=== PATIENT | male | born 1945 | race Caucasian/White ===

== ENCOUNTER 2019-03-28 20:25 | Emergency (ER) | payer MEDICARE, BC ==
[~2019-03-28] VITALS: Ht 167.6 cm; Wt 90.7 kg
--- NOTE | 2019-03-28 20:27 | ED.ADGEN ---
Past History Past Medical History: Arthritis, CAD, CHF, COPD, Hypertension, Other Past Surgical History: Other Past Surgical History History of craniotomy left Adult General Chief Complaint Chief Complaint ".. I guess I fell.. all I know I started to go around the corner.. and then the only thing I know I was on the ground... they said I was out for a bit.. I was at the [employer].. only had one beer...".." I fine now.. I want to be discharge.. I refuse admission...." HPI HPI Patient is a 76 year old male who presents with above hx and fall with momentary loss of consciousness at [employer]. Patient has history of periodic syncope with previous negative workups. Patient does have history of CVA and TIAs, history of aortic stenosis, coronary artery disease, COPD, and anemia.. Patient has known hypertension . Patient poorly had no seizure activity. Currently patient wi thout symptoms and demanding discharge. Follows with Beverly Romero as primary .,[facility]. Review of Systems Review of Systems Constitutional: Denies fever or chills [] Eyes: Denies change in visual acuity, redness, or eye pain [] HENT: Denies nasal congestion or sore throat [] Respiratory: Denies cough or shortness of breath [] Cardiovascular: No additional information not addressed in HPI [] GI: Denies abdominal pain, nausea, vomiting, bloody stools or diarrhea [] : Denies dysuria or hematuria [] Musculoskeletal: Denies back pain or joint pain [] Integument: Denies rash or skin lesions [] Neurologic: Denies headache, focal weakness or sensory changes [] Endocrine: Denies polyuria or polydipsia [] All other systems were reviewed and found to be within normal limits, except as documented in this note. Family History Family History Noncontributory Current Medications Current Medications Current Medications Medications (Trade) Dose Ordered Sig/Majo Start Time Stop Time Status Last Admin Dose Admin Lactated Ringer's 1,000 ml @ 100 mls/hr Q10H 03/28/19 20:33 03/28/19 23:19 DC 03/28/19 20:51 100 MLS/HR Allergies Allergies Allergies Coded Allergies Type Severity Reaction Last Updated Verified No Known Drug Allergies 10/16/14 No Physical Exam Physical Exam Constitutional: , no acute distress, non-toxic appearance. [] HENT: Normocephalic, atraumatic, bilateral external ears normal, oropharynx moist, no oral exudates, nose normal. []Old surgery scar left Eyes: PERRLA, EOMI, conjunctiva normal, no discharge. [] Neck: Normal range of motion, no tenderness, supple, no stridor. [] Cardiovascular:Heart rate regular rhythm, no murmur []PMI to the left. Aortic murmur. Lungs & Thorax: Bilateral breath sounds equal apex with scattered wheezes auscultation [] Abdomen: Bowel sounds normal, soft, no tenderness, no masses, no pulsatile masses. Old surgery scar Skin: Warm, dry, no erythema, no rash. [] Back: No tenderness, no CVA tenderness. [] Extremities: No tenderness, no cyanosis, no clubbing, ROM intact, no edema. [] Arthritic changes. Neurologic: Alert and oriented X 3, moves all extremities on request. Distal sensory, function, no gross focal deficits noted. []DTRs +2 patella and brachial. Ambulatory without problems. Slightly wide gait. Psychologic: Affect normal, judgement normal, mood normal. [] Current Patient Data Vital Signs Vital Signs Date Time Temp Pulse Resp B/P (MAP) Pulse Ox O2 Delivery O2 Flow Rate FiO2 03/28/19 21:41 63 19 111/80 (90) 96 Room Air 03/28/19 20:37 97.5 Lab Results Laboratory Tests Test 03/28/19 21:40 White Blood Count 8.1 x10^3/uL (4.0-11.0) Red Blood Count 5.52 x10^6/uL (4.30-5.70) Hemoglobin 17.5 g/dL (13.0-17.5) Hematocrit 51.7 % (39.0-53.0) Mean Corpuscular Volume 94 fL (79-100) Mean Corpuscular Hemoglobin 32 pg (25-35) Mean Corpuscular Hemoglobin Concent 34 g/dL (31-37) Red Cell Distribution Width 14.0 % (11.5-14.5) Platelet Count 144 x10^3/uL (140-400) Neutrophils (%) (Auto) 77 % (31-73) H Lymphocytes (%) (Auto) 15 % (24-48) L Monocytes (%) (Auto) 6 % (0-9) Eosinophils (%) (Auto) 2 % (0-3) Basophils (%) (Auto) 1 % (0-3) Neutrophils # (Auto) 6.2 x10^3uL (1.8-7.7) Lymphocytes # (Auto) 1.2 x10^3/uL (1.0-4.8) Monocytes # (Auto) 0.4 x10^3/uL (0.0-1.1) Eosinophils # (Auto) 0.2 x10^3/uL (0.0-0.7) Basophils # (Auto) 0.1 x10^3/uL (0.0-0.2) Prothrombin Time 10.4 SEC (9.4-11.4) Prothrombin Time INR 1.0 (0.9-1.1) PTT 21 SEC (23-33) L D-Dimer (Margot) 0.43 mg/L (0.00-0.50) Sodium Level 140 mmol/L (136-145) Potassium Level 4.1 mmol/L (3.5-5.1) Chloride Level 104 mmol/L (98-107) Carbon Dioxide Level 27 mmol/L (21-32) Anion Gap 9 (6-14) Blood Urea Nitrogen 13 mg/dL (8-26) Creatinine 1.0 mg/dL (0.7-1.3) Estimated GFR (Cockcroft-Gault) 73.0 Glucose Level 110 mg/dL (70-99) H Calcium Level 9.3 mg/dL (8.5-10.1) Magnesium Level 2.2 mg/dL (1.8-2.4) Total Bilirubin 0.6 mg/dL (0.2-1.0) Direct Bilirubin 0.1 mg/dL (0.0-0.2) Aspartate Amino Transferase (AST) 16 U/L (15-37) Alanine Aminotransferase (ALT) 31 U/L (16-63) Alkaline Phosphatase 123 U/L (46-116) H Creatine Kinase 51 U/L (39-308) Creatine Kinase MB (Mass) 0.9 ng/mL (0.0-3.6) Creatine Kinase MB Relative Index 1.8 % (0-4) Troponin I Quantitative < 0.017 ng/mL (0-0.055) EB-Dlw-P-Type Natriuretic Peptide 122 pg/mL (0-124) Total Protein 6.9 g/dL (6.4-8.2) Albumin 3.8 g/dL (3.4-5.0) Lipase 135 U/L (73-393) Ethyl Alcohol Level < 10 mg/dL (0-10) EKG EKG I interpretation EKG shows sinus rhythm at 76 bpm. Does have occasional premature complex. Nonspecific and anterior and inferior changes. No findings acute STEMI with contralateral changes.[] Radiology/Procedures Radiology/Procedures My interpretation of chest x-ray shows no acute cardiopulmonary findings. Borderline cardiomegaly. My interpretation CT of head shows no shift, mass, edema, bleed, or fracture. Does have findings of left frontal parental craniotomy and encephalomalacia. Has generalized diffuse parenchymal atrophy.[] Course & Med Decision Making Course & Med Decision Making Pertinent Labs and Imaging studies reviewed. (See chart for details) Patient refuses admission. Patient refuses to wait for pending labs. is at bed side advised this this is normal behavior for him. States she will and he will return if he has increased symptoms tonight. Patient seems aware of risk of discharge for completion of work up. Patient to use refused admission or further evaluation. Patient encouraged to have prompt follow-up with his primary. . Beverly [] Final Impression Final Impression 1. Fall[] 2. Possible syncope 3. History of left frontoparietal craniotomy and encephalomalacia 4. Anemia 11.5 hemoglobin Dragon Disclaimer Dragon Disclaimer This electronic medical record was generated, in whole or in part, using a voice recognition dictation system. Discharge Summary Visit Information Final Diagnosis Problems Medical Problems: (1) Fall Status: Acute (2) Syncope Status: Acute Brief Hospital Course Allergies Allergies Coded Allergies Type Severity Reaction Last Updated Verified No Known Drug Allergies 10/16/14 No Vital Signs Vital Signs Date Time Temp Pulse Resp B/P (MAP) Pulse Ox O2 Delivery O2 Flow Rate FiO2 03/28/19 21:41 63 19 111/80 (90) 96 Room Air 03/28/19 20:37 97.5 Lab Results Laboratory Tests Test 03/28/19 21:40 White Blood Count 8.1 x10^3/uL (4.0-11.0) Red Blood Count 5.52 x10^6/uL (4.30-5.70) Hemoglobin 17.5 g/dL (13.0-17.5) Hematocrit 51.7 % (39.0-53.0) Mean Corpuscular Volume 94 fL (79-100) Mean Corpuscular Hemoglobin 32 pg (25-35) Mean Corpuscular Hemoglobin Concent 34 g/dL (31-37) Red Cell Distribution Width 14.0 % (11.5-14.5) Platelet Count 144 x10^3/uL (140-400) Neutrophils (%) (Auto) 77 % (31-73) Lymphocytes (%) (Auto) 15 % (24-48) Monocytes (%) (Auto) 6 % (0-9) Eosinophils (%) (Auto) 2 % (0-3) Basophils (%) (Auto) 1 % (0-3) Neutrophils # (Auto) 6.2 x10^3uL (1.8-7.7) Lymphocytes # (Auto) 1.2 x10^3/uL (1.0-4.8) Monocytes # (Auto) 0.4 x10^3/uL (0.0-1.1) Eosinophils # (Auto) 0.2 x10^3/uL (0.0-0.7) Basophils # (Auto) 0.1 x10^3/uL (0.0-0.2) Prothrombin Time 10.4 SEC (9.4-11.4) Prothromb Time International Ratio 1.0 (0.9-1.1) Activated Partial Thromboplast Time 21 SEC (23-33) D-Dimer (Margot) 0.43 mg/L (0.00-0.50) Sodium Level 140 mmol/L (136-145) Potassium Level 4.1 mmol/L (3.5-5.1) Chloride Level 104 mmol/L (98-107) Carbon Dioxide Level 27 mmol/L (21-32) Anion Gap 9 (6-14) Blood Urea Nitrogen 13 mg/dL (8-26) Creatinine 1.0 mg/dL (0.7-1.3) Estimated GFR (Cockcroft-Gault) 73.0 Glucose Level 110 mg/dL (70-99) Calcium Level 9.3 mg/dL (8.5-10.1) Magnesium Level 2.2 mg/dL (1.8-2.4) Total Bilirubin 0.6 mg/dL (0.2-1.0) Direct Bilirubin 0.1 mg/dL (0.0-0.2) Aspartate Amino Transf (AST/SGOT) 16 U/L (15-37) Alanine Aminotransferase (ALT/SGPT) 31 U/L (16-63) Alkaline Phosphatase 123 U/L (46-116) Creatine Kinase 51 U/L (39-308) Creatine Kinase MB (Mass) 0.9 ng/mL (0.0-3.6) Creatine Kinase MB Relative Index 1.8 % (0-4) Troponin I Quantitative < 0.017 ng/mL (0-0.055) KL-Zyj-S-Type Natriuretic Peptide 122 pg/mL (0-124) Total Protein 6.9 g/dL (6.4-8.2) Albumin 3.8 g/dL (3.4-5.0) Lipase 135 U/L (73-393) Ethyl Alcohol Level < 10 mg/dL (0-10) Brief Hospital Course Mr. Sheldon is a 73 old male who presented with fall and possible syncope. Refuses admission. Discharge Information Condition at Discharge: Improved Disposition/Orders: D/C to Home Dischare Medications Current Medications Lactated Ringer's 1,000 ml @ 100 mls/hr Q10H IV Last administered on 03/28/19at 20:51; Admin Dose 100 MLS/HR; Start 03/28/19 at 20:33; Stop 03/28/19 at 23:19; Status DC Dragon Disclaimer This chart was dictated in whole or in part using Voice Recognition software in a busy, high-work load, and often noisy Emergency Department environment. It may contain unintended and wholly unrecognized errors or omissions. KAUSHIK GARCIA MD March 28, 2019 20:27
[2019-03-28] MEDS ORDERED: IV RINGERS SOLUTION,LACTATED 1,000 ML IV SCH (20:33)
[2019-03-28 21:41] VITALS: BP 111/80
[2019-03-28 21:56] LABS: BASO # 0.1 x10^3/uL (0.0-0.2); BASO % 1 % (0-3); EOS # 0.2 x10^3/uL (0.0-0.7); EOS % 2 % (0-3); HEMATOCRIT 51.7 % (39.0-53.0); HEMOGLOBIN 17.5 g/dL (13.0-17.5); LYMPH # 1.2 x10^3/uL (1.0-4.8); LYMPH % 15 % (24-48); MEAN CORPUSCULAR HEMOGLOBIN 32 pg (25-35); MEAN CORPUSCULAR HGB CONC 34 g/dL (31-37); MEAN CORPUSCULAR VOLUME 94 fL (79-100); MONO # 0.4 x10^3/uL (0.0-1.1); MONO % 6 % (0-9); NEUT # 6.2 x10^3uL (1.8-7.7); NEUT % 77 % (31-73); PLATELET COUNT 144 x10^3/uL (140-400); RED BLOOD COUNT 5.52 x10^6/uL (4.30-5.70); WHITE BLOOD COUNT 8.1 x10^3/uL (4.0-11.0)
--- NOTE | 2019-03-28 21:56 | RAD ---
CT scan of the head without contrast 03/28/2019 Clinical History: Fall. Loss of consciousness. Head trauma. Technique: Unenhanced, contiguous, 5 mm axial sections were obtained through the head. One or more of the following individualized dose reduction techniques were utilized for this study: 1. Automated exposure control. 2. Adjustment of the mA and/or kV according to patient size. 3. Use of iterative reconstruction technique. Findings: Comparison study is dated 01/07/2007. The patient is post left frontoparietal craniotomy. There is generalized parenchymal atrophy. Areas of decreased attenuation are seen within the periventricular and subcortical white matter of both cerebral hemispheres consistent with areas of small vessel ischemic disease. An area encephalomalacia seen involving the left frontal lobe. No acute parenchymal abnormality is seen. No extra-axial fluid collection is noted. No skull fracture is seen. Impression: No acute intracranial abnormality is seen. CT scan of the cervical spine without contrast 03/28/2019 Clinical history: Fall with neck injury. Technique: Unenhanced, contiguous, 0.625 mm axial sections were obtained through the cervical spine. Axial, coronal and sagittal reconstructed images were obtained. One or more of the following individualized dose reduction techniques were utilized for this study: 1. Automated exposure control. 2. Adjustment of the mA and/or kV according to patient size. 3. Use of iterative reconstruction technique. Findings: Sagittal and coronal constructed images demonstrate very mild lateral curvature of the cervical spine, convex to the left. There is mild straightening of the normal cervical lordosis. No fracture or subluxation of the cervical vertebrae is seen. Degenerative changes are seen involving the uncovertebral and facet joints throughout the cervical disc spaces. Impression: No fracture or subluxation of the cervical vertebra is identified. Electronically signed by: Chris Jimenez MD (03/28/2019 9:53 PM) [facility]
[2019-03-28 22:21] LABS: ALBUMIN 3.8 g/dL (3.4-5.0); CALCIUM 9.3 mg/dL (8.5-10.1); DIRECT BILIRUBIN 0.1 mg/dL (0.0-0.2); MAGNESIUM 2.2 mg/dL (1.8-2.4); POTASSIUM 4.1 mmol/L (3.5-5.1); TOTAL BILIRUBIN 0.6 mg/dL (0.2-1.0); TOTAL PROTEIN 6.9 g/dL (6.4-8.2)
--- NOTE | 2019-03-29 00:17 | RAD ---
PROCEDURE: CHEST PA LATERAL CLINICAL INDICATION: Fall COMPARISON: None FINDINGS: No pneumothorax identified. Cardiac and mediastinal contours unremarkable. No pulmonary consolidation or acute airspace disease. No acute osseous abnormalities identified. IMPRESSION: No pulmonary consolidation or acute airspace disease. Electronically signed by: Vic Mitchell DO (03/29/2019 12:14 AM) [id number]
--- NOTE | 2019-03-29 15:09 | EKG ---
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
== END 2019-03-28 23:19 | disposition home or self-care (01) ==
LOC: ER 20:25
DX: R55 Syncope and collapse (principal); D64.9 Anemia, unspecified; G93.89 Other specified disorders of brain; M19.90 Unspecified osteoarthritis, unspecified site; I11.9 Hypertensive heart disease without heart failure; I50.9 Heart failure, unspecified; J44.9 Chronic obstructive pulmonary disease, unspecified; Z86.73 Personal history of transient ischemic attack (TIA), and cerebral infarction without residual deficits; W18.39XA Other fall on same level, initial encounter; Y93.89 Activity, other specified; Y92.89 Other specified places as the place of occurrence of the external cause; Y99.8 Other external cause status
CPT/HCPCS: 36415; 70450; 71046; 72125; 80048; 80076; 82553; 83690; 83735; 83880; 84443; 84484; 85025; 85379; 85610; 85730; 93005; 96360; 96361; 99285; G0480; J7120

== ENCOUNTER → 2021-08-12 | Outpatient (CLI) | payer MEDICARE, BC ==
--- NOTE | 2021-08-12 16:40 | RAD ---
EXAM: Lumbar spine, 5 views. HISTORY: Pain. COMPARISON: None. FINDINGS: 5 views lumbar spine are obtained. There is mild S-shaped thoracolumbar scoliosis. There is no significant listhesis. There is degenerative endplate remodeling with disc space narrowing and fa cet arthropathy predominantly at L4-5 and L5-S1. There is a right iliac stent. 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 IMPRESSION: 1. Multilevel degenerative change involving the lumbar spine, primarily at the lower lumbar levels. 2. Mild scoliosis. Electronically signed by: Charlene Benjamin MD (08/12/2021 4:37 PM) [facility]
== END ==
LOC: RAD 14:18
PROVIDERS: ATTEND Physician Assistant Medical
DX: M47.816 Spondylosis without myelopathy or radiculopathy, lumbar region (principal); M41.86 Other forms of scoliosis, lumbar region
CPT/HCPCS: 72110

== ENCOUNTER 2021-10-10 15:27 | Emergency (ER) | payer MEDICARE, BC ==
[~2021-10-10] VITALS: Ht 167.6 cm; Wt 90.9 kg
--- NOTE | 2021-10-10 17:00 | RAD ---
Single view chest dated 10/10/2021 4:56 PM: COMPARISON: 03/28/2019 Clinical Indication: Shortness of breath. Findings: Single upright portable exam of the chest was performed. Heart and mediastinal contours are stable. L ungs are hyperinflated but otherwise clear. No consolidation or pleural effusion. No pneumothorax. IMPRESSION: No acute radiographic abnormality. Electronically signed by: Bryn Glass MD (10/10/2021 4:57 PM) [facility]
--- NOTE | 2021-10-10 17:06 | EKG ---
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
[2021-10-10 18:26] LABS: INFLUENZA A PATIENT NEGATIVE (NEGATIVE); INFLUENZA B PATIENT NEGATIVE (NEGATIVE)
--- NOTE | 2021-10-10 18:49 | PHYS DOC ---
Past History Past Medical History: Arthritis, CAD, CHF, COPD, Hypertension, Other (BRIDGER BABCOCK) Past Surgical History: Other Additional Past Surgical Histo: brain tumor removed (BRIDGER BABCOCK) Alcohol Use: Occasionally Drug Use: None (BRIDGER BABCOCK) General Adult EDM: Chief Complaint: SHORTNESS OF BREATH HPI: HPI: Patient is a 75 year old male who presents with 1 week history of shortness of breath and weakness. Patient states that when his symptoms began, he and his were tested for flu and COVID-19. Both tests were negative, but their symptoms have persisted and worsened. Patient denies fever, chills, cough, chest pain, palpitations, abdominal pain, NVD. (BRIDGER BABCOCK) Review of Systems: Review of Systems: Constitutional: See HPI Eyes: Denies change in visual acuity or visual field deficits HENT: Denies nasal congestion or sore throat Respiratory: See HPI Cardiovascular: See HPI GI: See HPI : Denies dysuria or hematuria Musculoskeletal: Denies back pain or joint pain Integument: Denies rash or other skin lesions Neurologic: Denies headache, focal weakness or sensory changes (BRIDGER BABCOCK) Allergies: Allergies: Allergies Coded Allergies Type Severity Reaction Last Updated Verified No Known Drug Allergies 10/16/14 No (BRIDGER BABCOCK) Physical Exam: PE: Constitutional: Well developed, well nourished, no acute distress, non-toxic appearance. Neck: Normal range of motion, no tenderness, supple, no stridor. Cardiovascular: Heart rate regular rhythm, no obvious murmur. Lungs & Thorax: Bilateral breath sounds clear to auscultation. Abdomen: Bowel sounds normal, soft, no tenderness, no masses, no pulsatile masses. Skin: Warm, dry, no erythema, no rash. Back: No tenderness, no CVA tenderness. Extremities: No tenderness, no cyanosis, no clubbing, ROM intact, no edema. Neurologic: Alert and oriented x4, normal motor function, normal sensory function, no focal deficits noted. (BRIDGER BABCOCK) Current Patient Data: Labs: Laboratory Tests Test 10/10/21 17:36 Influenza Type A (Rapid) Negative (NEGATIVE) Influenza Type B (Rapid) Negative (NEGATIVE) Vital Signs: Vital Signs Date Time Temp Pulse Resp B/P (MAP) Pulse Ox O2 Delivery O2 Flow Rate FiO2 10/10/21 18:00 83 20 115/63 (80) 96 Room Air 10/10/21 16:43 97.9 (BRIDGER BBACOCK) EKG: EKG: EKG Interpreted by Dr. Iqbal at 1547: Regular rate and rhythm 76 bpm with no ectopic beats. QT 358 ms/QTc [address]-T wave changes. (BRIDGER BABCOCK) Radiology/Procedures: Radiology/Procedures: PROCEDURE: CHEST AP ONLY Single view chest dated 10/10/2021 4:56 PM: COMPARISON: 03/28/2019 Clinical Indication: Shortness of breath. Findings: Single upright portable exam of the chest was performed. Heart and mediastinal contours are stable. Lungs are hyperinflated but otherwise clear. No consolidation or pleural effusion. No pneumothorax. IMPRESSION: No acute radiographic abnormality. Electronically signed by: Bryn Glass MD (10/10/2021 4:57 PM) JOJO-LOS (BRIDGER BABCOCK) Heart Score: C/O Chest Pain: No (BRIDGER BABCOCK) Course & Med Decision Making: Course & Med Decision Making Pertinent Labs and Imaging studies reviewed. (See chart for details) Patient appears in good condition for age on exam. Work-up will include lab work, chest x-ray, EKG and Covid and flu swabs. Work-up is largely reassuring and patient's vitals are stable. Patient will be discharged home with return precautions. Patient is instructed to quarantine until COVID-19 test results are available tomorrow. Patient understands and is agreeable to discharge plan. (BRIDGER BABCOCK) Course & Med Decision Making Did not see or evaluate patient. Did not discuss patient with ANVIL WORKER. Agree with ANVIL WORKER's work-up and disposition per note. (DUSTIN ROGERS MD) Dragon Disclaimer: Dragon Disclaimer: This electronic medical record was generated, in whole or in part, using a voice recognition dictation system. (BRIDGER BABCOCK) Departure Departure: Impression: Primary Impression: Dyspnea on exertion Additional Impressions: COPD (chronic obstructive pulmonary disease) Qualified Codes: J44.9 - Chronic obstructive pulmonary disease, unspecified Well-controlled hypertension History of CHF (congestive heart failure) Disposition: HOME / SELF CARE / HOMELESS Condition: STABLE Referrals: MARY WHYTE (PCP) Patient Instructions: Health Maintenance, Males Additional Instructions: As discussed, your work-up today here in the emergency department was reassuring. Please return to the emergency department if you develop any new symptoms or if your symptoms worsen. BRIDGER BABCOCK Oct 10, 2021 18:49 DUSTIN ROGERS MD Oct 10, 2021 21:30
[2021-10-10 20:16] LABS: BASO # 0.1 x10^3/uL (0.0-0.2); BASO % 1 % (0-3); EOS # 0.1 x10^3/uL (0.0-0.7); EOS % 2 % (0-3); HEMATOCRIT 51.5 % (39.0-53.0); HEMOGLOBIN 17.4 g/dL (13.0-17.5); LYMPH # 1.7 x10^3/uL (1.0-4.8); LYMPH % 20 % (24-48); MEAN CORPUSCULAR HEMOGLOBIN 32 pg (25-35); MEAN CORPUSCULAR HGB CONC 34 g/dL (31-37); MEAN CORPUSCULAR VOLUME 95 fL (79-100); MONO # 0.8 x10^3/uL (0.0-1.1); MONO % 9 % (0-9); NEUT % 69 % (31-73); PLATELET COUNT 250 x10^3/uL (140-400); RED BLOOD COUNT 5.41 x10^6/uL (4.30-5.70); RED CELL DISTRIBUTION WIDTH 13.7 % (11.5-14.5); WHITE BLOOD COUNT 8.7 x10^3/uL (4.0-11.0)
[2021-10-10 20:31] LABS: CALCIUM 9.5 mg/dL (8.5-10.1); GFR 72.6; POTASSIUM 4.6 mmol/L (3.5-5.1)
[2021-10-10 20:36] LABS: ALBUMIN 3.8 g/dL (3.4-5.0); ALBUMIN/GLOBULIN RATIO 1.2 (1.0-1.7); TOTAL BILIRUBIN 0.7 mg/dL (0.2-1.0)
[2021-10-10 22:01] VITALS: BP 116/80
--- NOTE | 2021-10-11 16:37 | NUR ---
IP: Informed pt of positive covid test and the need to quarantine for 10 days. Pt verbalized understanding.
== END 2021-10-10 22:13 | disposition home or self-care (01) ==
LOC: ER 15:27
DX: U07.1 COVID-19 (principal); J44.9 Chronic obstructive pulmonary disease, unspecified; I11.0 Hypertensive heart disease with heart failure; I50.9 Heart failure, unspecified; M19.90 Unspecified osteoarthritis, unspecified site; I25.10 Atherosclerotic heart disease of native coronary artery without angina pectoris
CPT/HCPCS: 36415; 71045; 80053; 85025; 87804; 93005; 99285; C9803; U0003